=== PATIENT | female | born 1935 | race Caucasian/White ===

== ENCOUNTER 2016-12-23 11:29 | Emergency (ER) | payer MEDICARE, BC ==
[~2016-12-23] VITALS: Ht 162.6 cm; Wt 72.0 kg
[~2016-12-23 11:29] MED LIST: ASA LO-DOSE81 MG OR; BONIVA150 MG OR; CIPRO500 MG OR; COREG CR20 MG OR; PREVACID15 M1 OR; SYNTHROID OR
[2016-12-23] MEDS ORDERED: ENALAPRIL10 MG PO (13:22)
[2016-12-23] MEDS ORDERED: LOPRESSOR 550 MG/TAB PO (13:23)
[2016-12-23] MEDS ORDERED: PREVACID30 M2 PO (13:24)
[2016-12-23] MEDS ORDERED: LEVOTHYROXIN125 MC1 PO (13:24)
[2016-12-23] MEDS ORDERED: VITAMIN D2000 UNI2 PO ×2 (13:25→13:27)
[2016-12-23] MEDS ORDERED: PRESERVISION ARED1 (13:27)
[2016-12-23] MEDS ORDERED: DULOXETINE HCL1 POW (13:28)
[2016-12-23] MEDS ORDERED: AUGMENTIN875TAB PO (14:44)
[2016-12-23 15:40] LABS: HEMATOCRIT 42.6 % (37.0-47.0); IMMATURE GRANULOCYTES 0.3 % (0.0-1.0); MEAN CELL VOLUME 91.4 fL CALC (80.0-100.0); MEAN CORPUSCULAR HGB CONC 32.9 g/L CALC (32.0-36.0); NEUT# 3.55 thou/uL (2.00-7.15); RED BLOOD COUNT 4.66 mill/uL (4.20-5.60); RED CELL DISTRI WIDTH 15.1 % (11.5-15.5)
[2016-12-23 15:56] LABS: ALBUMIN 3.9 g/dL (3.2-5.0); ALKALINE PHOSPHATASE 93 u/l (38-126); ANION GAP 13 (6-22 (CALC)); BILIRUBIN, TOTAL 0.6 mg/dL (0.0-1.4); BUN 23 mg/dL (8-23); BUN/CREATININE RATIO 27 (12-20 (CALC)); CALCIUM 9.3 mg/dL (8.4-10.2); CARBON DIOXIDE 30 mmol/l (22-30); CHLORIDE 102 mmol/l (95-108); CREATININE 0.9 mg/dL (0.5-1.0); GFR 60 ML/MIN (>=60 (CALC)); GFR FOR AFR.AMER. > 60 ML/MIN (>=60 (CALC)); GLUCOSE 87 mg/dL (82-115); POTASSIUM 4.6 mmol/l (3.5-5.1); SGOT/AST 27 u/l (9-36); SGPT/ALT 32 u/l (11-66); SODIUM 141 mmol/l (137-146); TOTAL PROTEIN 6.9 g/dL (6.3-8.2)
[2016-12-23 17:06] VITALS: BP 98/54
== END 2016-12-23 17:06 | disposition home or self-care (01) ==
LOC: ED 11:29
PROVIDERS: Emergency Medicine
PROC: 0HQGXZZ Repair Left Hand Skin, External Approach (ICD-10-PCS; principal; 2016-12-23)
PROC: 3E0234Z Introduction of Serum, Toxoid and Vaccine into Muscle, Percutaneous Approach (ICD-10-PCS; 2016-12-23)
DX: S61.052A Open bite of left thumb without damage to nail, initial encounter (principal); W55.51XA Bitten by raccoon, initial encounter; I10 Essential (primary) hypertension; E03.9 Hypothyroidism, unspecified; M19.90 Unspecified osteoarthritis, unspecified site; Y93.89 Activity, other specified; Y92.008 Other place in unspecified non-institutional (private) residence as the place of occurrence of the external cause; Z86.73 Personal history of transient ischemic attack (TIA), and cerebral infarction without residual deficits; Z23 Encounter for immunization

== ENCOUNTER 2018-06-21 18:37 | Emergency (ER) | payer MEDICARE, BC ==
[~2018-06-21] VITALS: Ht 162.6 cm; Wt 75.0 kg
[~2018-06-21 18:37] MED LIST changes: +AUGMENTIN875TAB PO; +DULOXETINE HCL1 POW; +ENALAPRIL10 MG PO; +LEVOTHYROXIN125 MC1 PO; +LOPRESSOR 550 MG/TAB PO; +PRESERVISION ARED1; +PREVACID30 M2 PO; +VITAMIN D2000 UNI2 PO
[2018-06-21 18:59] LABS: HEMATOCRIT 43.8 % (37.0-47.0); HEMOGLOBIN 13.7 g/dl (12.0-16.0); IMMATURE GRANULOCYTES 0.2 % (0.0-5.0); MEAN CELL VOLUME 91.6 fL CALC (80.0-100.0); MEAN CORPUSCULAR HGB 28.7 pG CALC (26.0-32.0); MEAN CORPUSCULAR HGB CONC 31.3 g/L CALC (32.0-36.0); NEUT# 3.88 thou/uL (2.00-7.15); RED BLOOD COUNT 4.78 mill/uL (4.20-5.60); RED CELL DISTRI WIDTH 14.9 % (11.5-15.5)
[2018-06-21 19:12] LABS: ALBUMIN 4.3 g/dL (3.2-5.0); ALKALINE PHOSPHATASE 86 u/l (38-126); ANION GAP 15 (6-22 (CALC)); BILIRUBIN, TOTAL 0.4 mg/dL (0.0-1.4); BUN 20 mg/dL (8-23); BUN/CREATININE RATIO 22 (12-20 (CALC)); CARBON DIOXIDE 26 mmol/l (22-30); CHLORIDE 104 mmol/l (95-108); CREATININE 0.9 mg/dL (0.5-1.0); GFR 60 ML/MIN (>=60 (CALC)); GFR FOR AFR.AMER. > 60 ML/MIN (>=60 (CALC)); POTASSIUM 5.1 mmol/l (3.5-5.1); SGOT/AST 25 u/l (9-36); SODIUM 141 mmol/l (137-146); TOTAL PROTEIN 7.1 g/dL (6.3-8.2)
[2018-06-21 19:21] LABS: ACT PARTIAL THROMBO TIME 25.7 SECONDS (20.0-32.5); PROTHROMBIN TIME 10.1 SECONDS (9.0-12.5)
[2018-06-21 21:00] VITALS: BP 190/98
== END 2018-06-21 21:20 | disposition short-term general hospital (02) ==
LOC: ED 18:37
PROVIDERS: Emergency Medicine
DX: I63.9 Cerebral infarction, unspecified (principal); H53.2 Diplopia; I10 Essential (primary) hypertension; R42 Dizziness and giddiness; R29.703 NIHSS score 3; R26.81 Unsteadiness on feet

== ENCOUNTER 2024-01-29 09:54 | Emergency (ER) | payer MEDICARE, BC ==
[~2024-01-29] VITALS: Ht 162.6 cm; Wt 47.0 kg
[2024-01-29] VITALS (17 sets, daily range): BP systolic 115–188; BP diastolic 65–101
[2024-01-29 10:51] LABS: BASO% 0.6 % (0-3); EOS% 2.2 % (0-8); HEMATOCRIT 38.4 % (37.0-47.0); HEMOGLOBIN 12.1 g/dl (12.0-16.0); IMMATURE GRANULOCYTES 0.3 % (0.0-5.0); LYMPH% 11.8 % (15-41); MEAN CORPUSCULAR HGB 31.2 pG CALC (26.0-32.0); MEAN CORPUSCULAR HGB CONC 31.5 g/dL CAL (32.0-36.0); MONO% 10.4 % (2-13); NEUT# 5.02 thou/uL (2.00-7.15); NEUT% 74.7 % (42-76); RED BLOOD COUNT 3.88 mill/uL (4.20-5.60); RED CELL DISTRI WIDTH 14.9 % (11.5-15.5)
[2024-01-29 11:03] LABS: ALBUMIN 3.7 g/dL (3.2-5.0); ALKALINE PHOSPHATASE 105 u/l (38-126); ANION GAP 12 (6-22 (CALC)); BILIRUBIN, TOTAL 0.4 mg/dL (0.02-1.3); BUN 25 mg/dL (8-23); BUN/CREATININE RATIO 18 (12-20 (CALC)); CARBON DIOXIDE 30 mmol/l (22-30); CHLORIDE 100 mmol/l (95-108); CREATININE 1.4 mg/dL (0.5-1.0); ESTIMATED GFR 36 ML/MIN (>=90 (CALC)); POTASSIUM 4.5 mmol/l (3.5-5.1); SGOT/AST 27 u/l (9-36); SODIUM 139 mmol/l (137-146); TOTAL PROTEIN 6.8 g/dL (6.3-8.2)
[2024-01-29] MEDS ORDERED: KETOROLAC TROMETHAMINE 30 MG/ML SDV IM ONE (12:20)
[2024-01-29] MEDS ORDERED: TRAMADOL HYDROC50 M1 PO (13:46)
== END 2024-01-29 14:02 | disposition home or self-care (01) ==
LOC: ED 09:54
PROVIDERS: Family Medicine
DX: S22.32XA Fracture of one rib, left side, initial encounter for closed fracture (principal); M54.6 Pain in thoracic spine; M25.512 Pain in left shoulder; I10 Essential (primary) hypertension; E03.9 Hypothyroidism, unspecified; F03.90 Unspecified dementia, unspecified severity, without behavioral disturbance, psychotic disturbance, mood disturbance, and anxiety; Z86.73 Personal history of transient ischemic attack (TIA), and cerebral infarction without residual deficits; W01.0XXA Fall on same level from slipping, tripping and stumbling without subsequent striking against object, initial encounter; Y92.009 Unspecified place in unspecified non-institutional (private) residence as the place of occurrence of the external cause; R07.9 Chest pain, unspecified

== ENCOUNTER 2024-03-27 12:09 | Emergency (ER) | payer MEDICARE, BC ==
[~2024-03-27] VITALS: Ht 162.6 cm; Wt 44.0 kg
[2024-03-27] VITALS (12 sets, daily range): BP systolic 130–143; BP diastolic 72–85
[~2024-03-27 12:09] MED LIST changes: +TRAMADOL HYDROC50 M1 PO
[2024-03-27] MEDS ORDERED: MORPHINE SULFATE 4 MG/ML VIAL IV ONE (12:30)
[2024-03-27] MEDS ORDERED: SODIUM CHLORIDE 0.9% 1,000 ML IV ONE (12:30)
[2024-03-27] MEDS ORDERED: ONDANSETRON HCl 4 MG/2 ML SDV IV ONE (12:30)
[2024-03-27 13:01] LABS: BASO% 0.1 % (0-3); IMMATURE GRANULOCYTES 0.3 % (0.0-5.0); LYMPH% 1.8 % (15-41); MEAN CELL VOLUME 94.4 fL CALC (80.0-100.0); MEAN CORPUSCULAR HGB CONC 32.8 g/dL CAL (32.0-36.0); MONO% 3.7 % (2-13); NEUT# 20.39 thou/uL (2.00-7.15); NEUT% 94.1 % (42-76); RED BLOOD COUNT 4.78 mill/uL (4.20-5.60); RED CELL DISTRI WIDTH 13.7 % (11.5-15.5)
[2024-03-27 13:02] LABS: HEMATOCRIT 45.1 % (37.0-47.0); HEMOGLOBIN 14.8 g/dl (12.0-16.0)
[2024-03-27 13:15] LABS: TOTAL PROTEIN 7.7 g/dL (6.3-8.2)
[2024-03-27 13:17] LABS: BILIRUBIN, TOTAL 1.2 mg/dL (0.02-1.3); POTASSIUM 3.2 mmol/l (3.5-5.1)
== END 2024-03-27 16:34 | disposition short-term general hospital (02) ==
LOC: ED 12:09
PROVIDERS: Nurse Practitioner
DX: S72.002A Fracture of unspecified part of neck of left femur, initial encounter for closed fracture (principal); N39.0 Urinary tract infection, site not specified; N17.9 Acute kidney failure, unspecified; M25.511 Pain in right shoulder; I12.9 Hypertensive chronic kidney disease with stage 1 through stage 4 chronic kidney disease, or unspecified chronic kidney disease; N18.9 Chronic kidney disease, unspecified; E03.9 Hypothyroidism, unspecified; F03.90 Unspecified dementia, unspecified severity, without behavioral disturbance, psychotic disturbance, mood disturbance, and anxiety; W06.XXXA Fall from bed, initial encounter; Y92.003 Bedroom of unspecified non-institutional (private) residence as the place of occurrence of the external cause; Z86.73 Personal history of transient ischemic attack (TIA), and cerebral infarction without residual deficits
CPT/HCPCS: J0696; J2405